=== PATIENT | male | born 1950 | race Caucasian/White ===

== ENCOUNTER 2020-02-26 14:34 | Emergency (ER) | payer MEDICARE, BC ==
[2020-02-26] MEDS ORDERED: predniSONE 20 MG Tab PO ONE (14:35)
[2020-02-26] MEDS ORDERED: Triamcinolone Acetonide 40 MG/ML 1 ML MDV IM ONE (14:43)
[2020-02-26 14:45] VITALS: BP 132/74; PULSE 78
--- NOTE | 2020-02-26 14:46 | EDM.PDOC ---
ED HPI GENERAL MEDICAL PROBLEM - General Time Seen by Provider: 02/26/20 14:43 Source of Information: Reports: Patient History Limitations: Reports: No Limitations - History of Present Illness INITIAL COMMENTS - FREE TEXT/NARRATIVE: Complains of wasps stings about 45 min ago. [place],but worried about infection. 3 weeks ago he had a secondary bacterial infection in a bee sting on his hand. He denies any h/o anaphylactic reactions - Related Data Allergies Allergy/AdvReac Type Severity Reaction Status Date / Time Penicillins Allergy Cannot Verified 02/26/20 14:42 Remember Home Meds: Home Meds Aspirin [Adult Low Dose Aspirin EC] 81 mg PO DAILY 09/16/15 [History] Chlorthalidone 25 mg PO DAILY 09/16/15 [History] Losartan [Cozaar] 100 mg PO DAILY 09/16/15 [History] Metoprolol Succinate [Toprol XL] 12.5 mg PO BID 09/16/15 [History] Multivitamin with Minerals [Multiple Vitamin] 1 tab PO DAILY 09/16/15 [History] amLODIPine [Norvasc] 5 mg PO BID 09/16/15 [History] Past Medical History HEENT History: Reports: Impaired Vision Cardiovascular History: Reports: Hypertension Respiratory History: Reports: None Gastrointestinal History: Reports: Colon Polyp Genitourinary History: Reports: None EX ASSISTANT/PROGRAM DIRECTOR History: Reports: None Musculoskeletal History: Reports: Fracture Neurological History: Reports: None Psychiatric History: Reports: None Endocrine/Metabolic History: Reports: None Hematologic History: Reports: None Immunologic History: Reports: None Oncologic (Cancer) History: Reports: None Dermatologic History: Reports: None - Infectious Disease History Infectious Disease History: Reports: Chicken Pox, Measles, Mumps - Past Surgical History HEENT Surgical History: Reports: Oral Surgery, Tonsillectomy ED ROS GENERAL - Review of Systems Review Of Systems: Comprehensive ROS is negative, except as noted in HPI. ED EXAM, SKIN/RASH Exam: See Below Exam Limited By: No Limitations General Appearance: Alert, WD/WN Ears: Normal External Exam Nose: Normal Inspection Throat/Mouth: Normal Oropharynx Head: Atraumatic Neck: Normal Inspection Skin: Warm, Dry Associated features: Warmth Course - Orders/Labs/Meds Orders: Active Orders 24 hr Category Date Time Status Triamcinolone Acetonide [Kenalog-40] Med 02/26/20 14:43 Once 60 mg IM ONETIME ONE Departure - Departure Time of Disposition: 14:45 Disposition: Home, Self-Care 01 Condition: Good Clinical Impression: Wasp sting - Discharge Information Referrals: PCP,None [Primary Care Provider] - - Problem List & Annotations (1) Wasp sting SNOMED Code(s): 773227761, [id number] Code(s): T63.461A - TOXIC EFFECT OF VENOM OF WASPS, ACCIDENTAL, INIT Status: Acute Qualifiers: Encounter type: initial encounter - Problem List Review Problem List Initiated/Reviewed/Updated: Yes - My Orders Last 24 Hours: My Active Orders 02/26/20 14:43 Triamcinolone Acetonide [Kenalog-40] 60 mg IM ONETIME ONE - Assessment/Plan Last 24 Hours: My Active Orders 02/26/20 14:43 Triamcinolone Acetonide [Kenalog-40] 60 mg IM ONETIME ONE Plan: Kenalog 60 mg and then home Prednisone orally.Continue with Benadryl prn
== END 2020-02-26 15:08 | disposition home or self-care (01) ==
LOC: FB.ED 14:34
DX: T63.461A Toxic effect of venom of wasps, accidental (unintentional), initial encounter (principal); I10 Essential (primary) hypertension; Z88.0 Allergy status to penicillin; Z79.82 Long term (current) use of aspirin; Z79.899 Other long term (current) drug therapy
CPT/HCPCS: 96372; 99282; J3301; J7512